=== PATIENT | female | born 1990 | race Caucasian/White ===

== ENCOUNTER 2016-07-01 16:29 | Emergency (ER) | payer MEDICAID ==
[~2016-07-01] VITALS: Ht 152.4 cm; Wt 92.1 kg
[~2016-07-01 16:29] MED LIST: ALBUTEROL2 PUFFS/17 IN; BACLOFEN20 MG PO; BACTRIM 400 MG-1 TAB PO; BACTRIM DS 8001 TA1 PO; BENADRYL 25MG C25 MG PO; CIPRO 500MG TA500 MG PO; CLARITIN10 MG PO; GLUCOTROL XL2.5 MG PO; IBU-8800 MG PO; KEFLEX 500MG.500 MG PO; LEVOFLOXACIN 5500 M1 PO; LEVOTHYROXIN0.025 M1 PO; LISINOPRIL5 MG PO; LORTAB 5/500 501 TAB PO; MEDROL 4MG. DOSE4 MG PO; METFORMIN HCL1000 MG PO; MOTRIN800 MG PO; NOMEDS *; ONDANSETRON4 M1 PO; PHENERGAN25 M3 PO; SIMVASTATIN5 MG PO; TAMIFLU 75MG CA75 MG PO; TOPIRAMATE25 MG PO; Tri-Sprintec 281 TAB PO; ULTRAM50 MG PO; VIBRAMYCIN HYC100 MG PO; VICODIN 5/500 T1 TAB PO; VITAMIN D50000 I1 PO; VOLTAREN75 MG PO; ZITHROMAX 250M250 MG PO
[2016-07-01] MEDS ORDERED: BUSPAR 10MG TAB10 MG PO (16:37)
--- NOTE | 2016-07-01 17:02 | Emergency Room Report ---
History of Present Illness Time Seen by [id number] Presenting Problem in Triage Pt arrived:Walked Presenting Problem:PT C/O HARTMAN THAT HAS BEEN PRESENT SINCE THIS AM ALONG WITH N/V. 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 N Clinical Suspician of Infection? N Mental Status: 1 - Regular (Normal Baseline) Sepsis Risk:Low Sepsis Risk Have you (or family members/close friends) recently traveled outside the [place]? N If Yes, where/when: Have you had exposure to infectious disease within the past month? N TB? Other? Specify: Source patient Exam Limitations no limitations Comment Pt presents to ER with complaints of Migraine present for one day. Has nausea, vomiting, and light sensitivity. She does take Topamax for prevention, but does not take any triptan medication for migraine relief. Has been unable to keep any food or OTC medications down today due to the nausea, does have a ride with her. Timing/Duration this morning Severity moderate Modifying Factors Improves With: lying down, rest. Worsens With: light. Associated Symptoms nausea, vomiting, headache, photophobia ALLERGIES Coded Allergies: Penicillins (Intermediate, I-RASH 11/23/15) amoxicillin (08/30/15) Home Medications Active Scripts PROMETHAZINE HCL (Phenergan 25MG Tab (Geq)) 25 MG PO Q6HP PRN N/V #30 TAB Prov: 05/22/16 METFORMIN HCL (Metformin 1000MG) 1,000 MG PO BID #60 TAB Prov: 08/31/15 Glipizide (Glucotrol Xl) 2.5 MG PO DAILY #30 TER Prov: 08/31/15 Reported Medications Levothyroxine Sodium (Levothyroxine 0.025MG) 0.05 MG PO DAILY #30 TAB Simvastatin 5 MG PO DAILY #30 Lisinopril 5 MG PO DAILY #30 TAB Topiramate 25 MG PO DAILY #60 NORGESTIMATE-ETHINYL ESTRADIOL (Tri-Sprintec Tablet) 1 TAB PO DAILY #28 Buspirone Hcl (Buspar 10MG) 10 MG PO PRN PRN . History Medical History General CAD? No Angina: No [place]: No Hypertension? Yes Hyperlipidemia? No CHF? No DVT? No PE? No COPD? No Asthma? Yes Anemia? No GERD? No Gastric ulcers? No GI Bleed? No Hernia? No Thyroid Problems? No Hypothyroidism? No CVA? No Seizures? No Diabetes? Yes Insulin Dependent: No Insulin Pump: No Home FSBS? No Renal Insuffiency? No End Stage Renal Disease? No UTI? No Stones? No BPH? No GB Disease: No Nephritic Syndrome? No Asplenia? No Hepatitis? No Sickle Cell Disease? No Arthritis? No Migraines? No Cataracts? No Glaucoma? No MRSA? No HIV? No TB? No Anxiety? No Depression? No Cancer? No More? 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 Social History Smoking Hx Smoker: Former Smoker Tobacco: Yes Type Cigarettes Packs/day < 1 Pack Alcohol Alcohol: No Review of Systems All Other Systems Reviewed and Negative Gastrointestinal nausea, vomiting Psychiatric/Neurological headache Physical Exam Vital Signs Vital Signs Date Time Temp Pulse Resp B/P Pulse O2 O2 Flow FiO2 Ox Delivery Rate 07/01 1727 14 07/01 1708 104 18 128/78 98 07/01 1632 97.8 111 18 119/64 98 General Appearance normal appearance, WD/WN, no apparent distress Eye Exam - bilateral eye normal exam, bilateral eye PERRL, bilateral eye EOMI Ear, Nose, Throat hearing grossly normal, normal ENT inspection Neck normal inspection, non-tender, supple, full range of motion Respiratory Status Yes: trachea midline, chest symmetrical, non tender chest. No: respiratory distress. Lung Sounds bilateral: normal breath sounds, lungs clear. 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 No Results/Orders Current Medication Orders Sig/Tay Start time Last Medication Dose Route Stop Time Status Admin Ketorolac 0 .STK-MED ONE 07/01 1723 DC Tromethamine .ROUTE Promethazine HCl 0 .STK-MED ONE 07/01 1723 DC .ROUTE Ketorolac 60 MG ONCE ONE 07/01 1700 DC 07/01 Tromethamine IM 07/01 170 1727 Promethazine HCl 25 MG ONCE ONE 07/01 1700 DC 07/01 IM 07/01 170 1726 Sodium Chloride 25 ML ONCE ONE 07/01 170 DC IV 07/01 1714 Progress ED Progress Notes Time 1745 Comment Pt rechecked reports that she is feeling much better, nausea and headache relieved. Departure Departure Time of Disposition 1750 Disposition DC Home or Self Care(routine) Clinical Impression Primary Impression: Migraine Qualifiers: Migraine type: without aura Status migrainosus presence: without status migrainosus Intractability: not intractable Qualified Code: G43.009 - Migraine without aura, not intractable, without status migrainosus Secondary Impressions: Nausea and vomiting in adult Condition STABLE Referrals Janna WORTHY,Carlton Coyle (Family) Patient Instructions DI for Migraine Additional Instructions Increase fluids, bland/bratty diet until nausea and vomiting has stopped. She has promethazine at home to use PRN nausea and vomiting. Continue using daily Topamax. F/U with PCP to discuss possible increase in Topamax and addition of triptan to use for relief of migraines. Discharge Counseling Counseled pt/family regarding diagnosis, medications/RX, home care ED Critical Care Critical Care No Comments Increase fluids, bland/bratty diet until nausea and vomiting has stopped. She has promethazine at home to use PRN nausea and vomiting. Continue using daily Topamax. F/U with PCP to discuss possible increase in Topamax and addition of triptan to use for relief of migraines. at 1751
--- NOTE | 2016-07-01 17:02 | Emergency Room Report ---
History of Present Illness Time Seen by [id number] Presenting Problem in Triage Pt arrived:Walked Presenting Problem:PT C/O HARTMAN THAT HAS BEEN PRESENT SINCE THIS AM ALONG WITH N/V. 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 N Clinical Suspician of Infection? N Mental Status: 1 - Regular (Normal Baseline) Sepsis Risk:Low Sepsis Risk Have you (or family members/close friends) recently traveled outside the [place]? N If Yes, where/when: Have you had exposure to infectious disease within the past month? N TB? Other? Specify: Source patient Exam Limitations no limitations Comment Pt presents to ER with complaints of Migraine present for one day. Has nausea, vomiting, and light sensitivity. She does take Topamax for prevention, but does not take any triptan medication for migraine relief. Has been unable to keep any food or OTC medications down today due to the nausea, does have a ride with her. Timing/Duration this morning Severity moderate Modifying Factors Improves With: lying down, rest. Worsens With: light. Associated Symptoms nausea, vomiting, headache, photophobia ALLERGIES Coded Allergies: Penicillins (Intermediate, I-RASH 11/23/15) amoxicillin (08/30/15) Home Medications Active Scripts PROMETHAZINE HCL (Phenergan 25MG Tab (Geq)) 25 MG PO Q6HP PRN N/V #30 TAB Prov: 05/22/16 METFORMIN HCL (Metformin 1000MG) 1,000 MG PO BID #60 TAB Prov: 08/31/15 Glipizide (Glucotrol Xl) 2.5 MG PO DAILY #30 TER Prov: 08/31/15 Reported Medications Levothyroxine Sodium (Levothyroxine 0.025MG) 0.05 MG PO DAILY #30 TAB Simvastatin 5 MG PO DAILY #30 Lisinopril 5 MG PO DAILY #30 TAB Topiramate 25 MG PO DAILY #60 NORGESTIMATE-ETHINYL ESTRADIOL (Tri-Sprintec Tablet) 1 TAB PO DAILY #28 Buspirone Hcl (Buspar 10MG) 10 MG PO PRN PRN . History Medical History General CAD? No Angina: No [place]: No Hypertension? Yes Hyperlipidemia? No CHF? No DVT? No PE? No COPD? No Asthma? Yes Anemia? No GERD? No Gastric ulcers? No GI Bleed? No Hernia? No Thyroid Problems? No Hypothyroidism? No CVA? No Seizures? No Diabetes? Yes Insulin Dependent: No Insulin Pump: No Home FSBS? No Renal Insuffiency? No End Stage Renal Disease? No UTI? No Stones? No BPH? No GB Disease: No Nephritic Syndrome? No Asplenia? No Hepatitis? No Sickle Cell Disease? No Arthritis? No Migraines? No Cataracts? No Glaucoma? No MRSA? No HIV? No TB? No Anxiety? No Depression? No Cancer? No More? 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 Social History Smoking Hx Smoker: Former Smoker Tobacco: Yes Type Cigarettes Packs/day < 1 Pack Alcohol Alcohol: No Review of Systems All Other Systems Reviewed and Negative Gastrointestinal nausea, vomiting Psychiatric/Neurological headache Physical Exam Vital Signs Vital Signs Date Time Temp Pulse Resp B/P Pulse O2 O2 Flow FiO2 Ox Delivery Rate 07/01 1727 14 07/01 1708 104 18 128/78 98 07/01 1632 97.8 111 18 119/64 98 General Appearance normal appearance, WD/WN, no apparent distress Eye Exam - bilateral eye normal exam, bilateral eye PERRL, bilateral eye EOMI Ear, Nose, Throat hearing grossly normal, normal ENT inspection Neck normal inspection, non-tender, supple, full range of motion Respiratory Status Yes: trachea midline, chest symmetrical, non tender chest. No: respiratory distress. Lung Sounds bilateral: normal breath sounds, lungs clear. 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 No Results/Orders Current Medication Orders Sig/Tay Start time Last Medication Dose Route Stop Time Status Admin Ketorolac 0 .STK-MED ONE 07/01 1723 DC Tromethamine .ROUTE Promethazine HCl 0 .STK-MED ONE 07/01 1723 DC .ROUTE Ketorolac 60 MG ONCE ONE 07/01 1700 DC 07/01 Tromethamine IM 07/01 170 1727 Promethazine HCl 25 MG ONCE ONE 07/01 1700 DC 07/01 IM 07/01 170 1726 Sodium Chloride 25 ML ONCE ONE 07/01 170 DC IV 07/01 1714 Progress ED Progress Notes Time 1745 Comment Pt rechecked reports that she is feeling much better, nausea and headache relieved. Departure Departure Time of Disposition 1750 Disposition DC Home or Self Care(routine) Clinical Impression Primary Impression: Migraine Qualifiers: Migraine type: without aura Status migrainosus presence: without status migrainosus Intractability: not intractable Qualified Code: G43.009 - Migraine without aura, not intractable, without status migrainosus Secondary Impressions: Nausea and vomiting in adult Condition STABLE Referrals Janna WORTHY,Carlton Coyle (Family) Patient Instructions DI for Migraine Additional Instructions Increase fluids, bland/bratty diet until nausea and vomiting has stopped. She has promethazine at home to use PRN nausea and vomiting. Continue using daily Topamax. F/U with PCP to discuss possible increase in Topamax and addition of triptan to use for relief of migraines. Discharge Counseling Counseled pt/family regarding diagnosis, medications/RX, home care ED Critical Care Critical Care No Comments Increase fluids, bland/bratty diet until nausea and vomiting has stopped. She has promethazine at home to use PRN nausea and vomiting. Continue using daily Topamax. F/U with PCP to discuss possible increase in Topamax and addition of triptan to use for relief of migraines. at 1758
[2016-07-01 17:57] VITALS: BP 128/78
[2016-08-15] MEDS ORDERED: ZOFRAN4 MG PO (16:05)
[2016-09-03] MEDS ORDERED: PROVENTIL0.09 MG/A1 IH (09:52)
== END 2016-07-01 17:58 | disposition home or self-care (01) ==
LOC: ER 16:29
DX: G43.009 Migraine without aura, not intractable, without status migrainosus (principal); I10 Essential (primary) hypertension; Z87.891 Personal history of nicotine dependence; E11.9 Type 2 diabetes mellitus without complications

== ENCOUNTER → 2016-10-23 | Outpatient (CLI) | payer MEDICAID ==
[~2016-10-23] MED LIST changes: +BUSPAR 10MG TAB10 MG PO; +PROVENTIL0.09 MG/A1 IH; +ZOFRAN4 MG PO
== END ==
LOC: RAD 10:05
DX: M25.572 Pain in left ankle and joints of left foot (principal)